=== PATIENT | male | born 1940 | race Caucasian/White ===

== ENCOUNTER 2016-12-28 10:17 | Emergency (ER) | payer MEDICARE, OTHER ==
--- NOTE | ~2016-12-28 | CR63 ---
[facility] A Service of [facility] & [facility] RADIOLOGY TEXT RESULTS PATIENT: AYO RODARTE LOCATION: [facility] : 38 UNIT #: [id number] AGE: [address]: Jose D Carrasco SEX: M ORDER DR: [id number] [facility] [address] [place], [place] [address] [id number] E MR#: [id number] Acc #: [id number] NAME: AYO RODARTE. : 1940 SEX: M STUDY DATE/TIME: 12/28/2016 9:25 UNIT: [facility] ROOM: STUDY DESCRIPTION: CR Chest 2 View Attending Physician: Jose D Carrasco Ordering Physician: Ed Doc Marily Caba Primary Care Physician: Kirsten Lazo M.D. MEDICAL IMAGING REPORT This report is preliminary unless electronic signature is present EXAM Chest, PA and lateral. HISTORY Cough, congestion, and weakness for 3 days. TECHNIQUE PA and lateral views of the chest are obtained. FINDINGS Heart size in the patient is normal. Pulmonary vascular markings are normal. Lungs show some chronic scarring in the bases and atherosclerotic calcification of the aorta. Compared with the previous film of 07/23/2016, there has been no change. CONCLUSION Stable chest. No active disease. Dictated by... Phoenix Be M.D. THIS IS AN ELECTRONICALLY VERIFIED REPORT Phoenix Be M.D. at 12/28/2016 5:06 PM TINY/doug TD: 12/28/2016 11:47 JOB #: [id number] MEDICAL IMAGING REPORT COPY
--- NOTE | ~2016-12-28 | EKG ---
PATIENT: AYO RODARTE UNIT #: [id number] Ventricular Rate: 90 BPM Atrial Rate: 90 BPM P-R Interval: 142 ms QRS Duration: 98 ms Q-T Interval: 360 ms QTC Calculation(Bezet): 440 ms P [place]: 28 degrees Calculated R [place]: 3 degrees Calculated T [place]: 42 degrees Diagnosis Line: Normal sinus rhythm Diagnosis Line: Nonspecific ST abnormality Otherwise normal ECG Diagnosis Line: When compared with ECG of 23-JUL-2016 11:49, Diagnosis Line: No significant change was found Diagnosis Line: Confirmed by STEPHANY GARCÍA MD ([id number]) on 12/28/2016 Diagnosis Line: 6:01:33 PM INTERPRETING MD: RICKY HOBBS
[2016-12-28 09:09] LABS: INFLUENZA A NEG (NEG); INFLUENZA B NEG (NEG)
[2016-12-28 09:42] LABS: POC - CKMB <1.0 ng/mL (0.0-7.9); POC - TROPONIN <0.05 ng/mL (<=0.05)
[~2016-12-28 10:17] MED LIST: ACETAMINOPHEN325 MG PO; ALDACTONE25 MG PO; ASPIRIN81 M2 PO; CARVEDILOL3.125 MG PO; CHLORDIAZEPOXIDE5 MG PO; CLOPIDOGREL75 MG PO; DYAZIDE 37.5/251 CAP PO; FAMOTIDINE PO; GARLIC1000 MG PO; GAS-X166 MG PO; HYDROCHLOROTHIA25 MG PO; HYDROCODONE-CH473 ML PO; K-DUR20 ME2 PO; LIBRIUM PO; MAALOX SUSPENSI30 ML PO; PRILOSEC PO; REGLAN PO; TOPROL XL50 MG PO; ZOFRAN PO
== END 2016-12-28 10:24 | disposition home or self-care (01) ==
LOC: CED 10:17
PROVIDERS: Emergency Medicine; Nurse Practitioner
DX: J06.9 Acute upper respiratory infection, unspecified (principal); I25.2 Old myocardial infarction; Z86.718 Personal history of other venous thrombosis and embolism; I10 Essential (primary) hypertension; I25.10 Atherosclerotic heart disease of native coronary artery without angina pectoris; Z88.2 Allergy status to sulfonamides; Z88.8 Allergy status to other drugs, medicaments and biological substances
CPT/HCPCS: 71020; 82553; 84484; 87651; 87804; 87880; 93005; 94640; 99283

== ENCOUNTER 2016-12-30 11:32 | Emergency (ER) | payer MEDICARE, OTHER ==
--- NOTE | ~2016-12-30 | CR72 ---
[facility] A Service of [facility] RADIOLOGY TEXT RESULTS PATIENT: AYO RODARTE LOCATION: [facility] : 38 UNIT #: [id number] AGE: [address]: Belén Person MD SEX: M ORDER DR: [id number] [facility] [address] [place], [place] [address] [id number] E MR#: [id number] Acc #: [id number] NAME: AYO RODARTE. : 1940 SEX: M STUDY DATE/TIME: 12/30/2016 11:28 UNIT: [facility] ROOM: STUDY DESCRIPTION: CR Chest Single View Portable Attending Physician: Belén Person M.D. Ordering Physician: Belén Person M.D. Primary Care Physician: Kirsten Lazo M.D. MEDICAL IMAGING REPORT This report is preliminary unless electronic signature is present EXAM Single view of the chest dated 12/30/2016 COMPARISON Chest 2 views dated 12/28/2016 HISTORY Shortness of air, cough, congestion, fever dated 12/28/2016. History of melanoma. FINDINGS Single view of the chest was obtained. Minimal atelectatic changes in the right lung base cannot be excluded. There is no dense infiltrate, pleural effusion, or pneumothorax. Heart mediastinum and bones are grossly unremarkable. Dictated by... Sun Adam M.D. THIS IS AN ELECTRONICALLY VERIFIED REPORT Sun Adam M.D. at 12/31/2016 4:56 PM CPR/rnr TD: 12/30/2016 14:23 JOB #: [id number] MEDICAL IMAGING REPORT COPY
--- NOTE | ~2016-12-30 | EKG ---
PATIENT: AYO RODARTE UNIT #: [id number] Ventricular Rate: 78 BPM Atrial Rate: 78 BPM P-R Interval: 134 ms QRS Duration: 96 ms Q-T Interval: 368 ms QTC Calculation(Bezet): 419 ms P [place]: 34 degrees Calculated R [place]: 17 degrees Calculated T [place]: 37 degrees Diagnosis Line: Normal sinus rhythm Diagnosis Line: Normal ECG Diagnosis Line: When compared with ECG of 28-DEC-2016 09:13, Diagnosis Line: No significant change was found Diagnosis Line: Confirmed by STEPHANY GARCÍA MD ([id number]) on 12/31/2016 Diagnosis Line: 6:19:03 PM INTERPRETING MD: RICKY HOBBS
[2016-12-30 11:47] LABS: BASOPHIL% 0.3 % (0-2.5); HEMATOCRIT 43.2 % (38.0-50.0); HEMOGLOBIN 14.7 gm/dL (13.0-16.0); LYMPHOCYTE# 0.8 X10e3 (1.0-3.5); LYMPHOCYTE% 7.3 % (17.0-45.0); MEAN CELL VOLUME 92.8 FL (83-96); MEAN CORPUSCULAR HEMOGLOBIN 31.6 PG (28-34); MEAN PLATELET VOLUME 7.7 FL (6.5-11.5); MONOCYTE# 1.2 X10e3 (0-1.0); MONOCYTE% 11.1 % (3.0-12.0); NEUTROPHIL# 8.7 X10e3 (1.5-7.1); NEUTROPHIL% 81.3 % (40-75); PLATELET COUNT 175 X10e3 (140-420); RED BLOOD COUNT 4.65 X10e (3.90-5.60); RED CELL DISTRIBUTION WIDTH 13.1 % (11.0-15.5); WHITE BLOOD COUNT 10.7 X10e3 (4.0-10.5)
[2016-12-30 11:50] LABS: DIFF IND NO
[2016-12-30 12:03] LABS: PROTHROMBIN TIME (PATIENT) 10.9 SECONDS (9.6-11.5)
[2016-12-30 12:16] LABS: ALBUMIN SERUM 3.2 g/dL (3.5-5.0); ALKALINE PHOSPHATASE 43 U/L (32-92); ALT (SGPT) 19 U/L (10-40); AST (SGOT) 25 U/L (10-42); BILIRUBIN, DIRECT 0.2 mg/dL (0.0-0.2); BILIRUBIN,INDIRECT 0.5 mg/dL (0.0-0.9); BILIRUBIN,TOTAL 0.7 mg/dL (0.2-2.0); BLOOD UREA NITROGEN 12 mg/dL (9-23); CALCIUM SERUM 7.8 mg/dL (8.4-10.2); CARBON DIOXIDE 26 mmol/L (22-31); CHLORIDE 100 mmol/L (100-111); CREATININE SERUM 1.1 mg/dL (0.6-1.4); GLOM FILT RATE Estimated ABOVE60 mL/min (>60); GLUCOSE FASTING 112 mg/dL (70-110); POTASSIUM 3.5 mmol/L (3.5-5.1); PROTEIN TOTAL SERUM 6.4 g/dL (6.0-8.3); SODIUM 129 mmol/L (135-145)
[2016-12-30 13:13] LABS: POC - CKMB 1.2 ng/mL (0.0-7.9); POC - TROPONIN <0.05 ng/mL (<=0.05)
[2016-12-30 16:01] LABS: INFLUENZA A POS (NEG); INFLUENZA B NEG (NEG)
== END 2016-12-30 16:45 | disposition home or self-care (01) ==
LOC: CED 11:32
PROVIDERS: Emergency Medicine
DX: J11.1 Influenza due to unidentified influenza virus with other respiratory manifestations (principal); I25.2 Old myocardial infarction; I10 Essential (primary) hypertension; Z95.1 Presence of aortocoronary bypass graft; Z88.2 Allergy status to sulfonamides
CPT/HCPCS: 36415; 71010; 80048; 80076; 82553; 83880; 84484; 85025; 85610; 87040; 87804; 93005; 94640; 99284